=== PATIENT | male | born 1990 | race Caucasian/White ===

== ENCOUNTER 2017-05-02 10:43 | Day surgery (SDC) | payer BC ==
[~2017-05-02 10:43] MED LIST: Lactated Ringers 1,000 ML IV SCH; Lidocaine 1%/Sod Bicarbonate in NS 8.4% 1 ML Syringe PRN; Sodium Chloride 0.9% 10 ML Syringe FLUSH PRN
[2017-05-02] MEDS ORDERED: Bupivacaine 0.25% 30 ML SDV ONE (12:24)
--- NOTE | 2017-05-02 12:26 | PCM.PREANE ---
Preanesthetic Assessment - Anesthesia/Transfusion/Family Hx Anesthesia History: Prior Anesthesia Without Reaction Family History of Anesthesia Reaction: No Transfusion History: No Prior Transfusion(s) - Review of Systems General: No Symptoms Pulmonary: No Symptoms Cardiovascular: Orthopnea Neurological: No Symptoms Other: Reports: None - Physical Assessment NPO Status Date: 05/01/17 NPO Status Time: 09:00 (16 ounces - water and coffee) Pulse: 68 O2 Sat by Pulse Oximetry: 96 Respiratory Rate: 17 Blood Pressure: 141/85 Temperature: 99.1 F Height: 6 ft 2 in Weight: 91.8 kg ASA Class: 2 Mental Status: Alert & Oriented x3 Airway Class: Mallampati = 1 Dentition: Reports: Normal Dentition Thyro-Mental Finger Breadths: 3 Mouth Opening Finger Breadths: 3 ROM/Head Extension: Full Lungs: Clear to Auscultation, Normal Respiratory Effort Cardiovascular: Regular Rate, Regular Rhythm - Lab Values: Laboratory Last Values MRSA (PCR) Negative 05/01/17 11:25 - Allergies Allergies/Adverse Reactions: Allergies Allergy/AdvReac Type Severity Reaction Status Date / Time No Known Allergies Allergy Verified 05/01/17 14:51 - Blood Blood Available: No - Anesthesia Plan Pre-Op Medication Ordered: Antacids - Acknowledgements Anesthesia Type Planned: General Anesthesia (discussed increased risk of aspiration with 16 oz at 0900 and chewing tobacco at 0930 agrees to proceed) Pt an Appropriate Candidate for the Planned Anesthesia: Yes Alternatives and Risks of Anesthesia Discussed w Pt/Guardian: Yes Pt/Guardian Understands and Agrees with Anesthesia Plan: Yes PreAnesthesia Questionnaire - Past Health History Medical/Surgical History: Denies Medical/Surgical History HEENT History: Reports: Other (See Below) (glasses) Cardiovascular History: Reports: None Respiratory History: Reports: None Gastrointestinal History: Reports: None Musculoskeletal History: Reports: Arthritis - Past Surgical History Musculoskeletal Surgical History: Reports: Arthroscopic Knee - SUBSTANCE USE Tobacco Use Within Last Twelve Months: Smokeless Tobacco (today at 930) Second Hand Smoke Exposure: No Days Per Week of Alcohol Use: 1 (couple times a month) Recreational Drug Use History: No - HOME MEDS Home Medications: Home Meds Hydrocodone/Acetaminophen [[place] 5-325 Tablet] 1 - 2 each PO Q6H PRN #40 tablet 05/02/17 [Rx] Aspirin 325 mg PO BID #84 tab 05/03/17 [Rx] - CURRENT (IN HOUSE) MEDS Current Meds: Current Medications Epinephrine HCl (Adrenalin) 3 mg .XX ONETIME ONE Stop: 05/02/17 13:21 Lactated Ringer's (Ringers, Lactated) 1,000 mls @ 125 mls/hr IV ASDIRECTED CRISTINA Stop: 05/02/17 23:00 Lidocaine/Sodium Bicarbonate (Buffered Lidocaine 1% In Ns 8.4%) 0.25 ml .XX ONETIME PRN PRN Reason: Prior to IV Start Stop: 05/02/17 18:00 Sodium Chloride (Saline Flush) 10 ml FLUSH ASDIRECTED PRN PRN Reason: Keep Vein Open Stop: 05/02/17 18:00
[2017-05-02] MEDS ORDERED: Metoclopramide 10 MG/2 ML SDV IV ONE (12:29)
[2017-05-02] MEDS ORDERED: Citric Acid/Sodium Citrate Solution 30 ML Cup PO ONE (12:34)
[2017-05-02] MEDS ORDERED: Rocuronium 50 MG/5 ML Vial ONE (13:11)
[2017-05-02] MEDS ORDERED: Ondansetron 4 MG/2 ML SDV ONE (13:11)
[2017-05-02] MEDS ORDERED: Lidocaine 1% 4 ML ONE (13:11)
[2017-05-02] MEDS ORDERED: Propofol 200 MG/20 ML SDV ONE (13:11)
[2017-05-02] MEDS ORDERED: fentaNYL 250 MCG/5 ML SDV ONE (13:11)
[2017-05-02] MEDS ORDERED: Midazolam 1 MG/ML 2 ML SDV ONE (13:11)
[2017-05-02] MEDS ORDERED: ceFAZolin 1 GM Vial ONE (13:15)
[2017-05-02] MEDS ORDERED: EPINEPHrine 1 MG/ML 30 ML MDV ONE (13:20)
[2017-05-02] MEDS ORDERED: Ondansetron 4 MG/2 ML SDV IVPUSH PRN (13:36)
[2017-05-02] MEDS ORDERED: fentaNYL 100 MCG/2 ML SDV IVPUSH PRN (13:36)
[2017-05-02] MEDS ORDERED: Meperidine PF 50 MG/ML Syringe IVPUSH PRN (13:36)
[2017-05-02] MEDS ORDERED: HYDROmorphone 0.5 MG/0.5 ML Syringe IVPUSH PRN (13:36)
[2017-05-02] MEDS ORDERED: Lactated Ringers 1,000 ML ONE (13:54)
[2017-05-02] MEDS ORDERED: Ketorolac 30 MG/ML SDV ONE (14:08)
[2017-05-02] MEDS ORDERED: HYDROmorphone 1 MG/ML Syringe ONE (14:26)
[2017-05-02] MEDS ORDERED: Neostigmine Methylsulfate 1 MG/ML 5 ML Syringe ONE (14:42)
--- NOTE | 2017-05-02 14:45 | PCM.POSTAN ---
POST ANESTHESIA ASSESSMENT - MENTAL STATUS Mental Status: Alert, Oriented - VITAL SIGNS Pulse Rate: 77 SaO2: 99 Resp Rate: 11 Blood Pressure: 125/77 Temperature: 98 F - RESPIRATORY Respiratory Status: Respiratory Rate WNL, Airway Patent, O2 Saturation Stable, Supplemental Oxygen - CARDIOVASCULAR CV Status: Pulse Rate WNL, Blood Pressure Stable - GASTROINTESTINAL GI Status: No Symptoms - PAIN Pain Score: 0 - POST OP HYDRATION Hydration Status: Adequate & Stable
[2017-05-02] MEDS ORDERED: Acetaminophen/HYDROcodone 325-5 MG Tab PO PRN (15:19)
--- NOTE | 2017-05-02 15:55 | PCM48HPAN ---
Post Anesthesia Note - EVALUATION WITHIN 48HRS OF ANESTHETIC Vital Signs in Normal Range: Yes Patient Participated in Evaluation: Yes Respiratory Function Stable: Yes Airway Patent: Yes Cardiovascular Function Stable: Yes Hydration Status Stable: Yes Pain Control Satisfactory: Yes Nausea and Vomiting Control Satisfactory: Yes Mental Status Recovered: Yes
--- NOTE | 2017-05-06 14:23 | PCM.OPNOTE ---
- General Post-Op/Procedure Note Date of Surgery/Procedure: 05/02/17 Operative Procedure(s): right knee video arthroscopy with partial medial meniscectomy and chondroplasty of medial compartment. 2. 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
--- NOTE | 2017-05-06 14:51 | OR ---
DATE OF OPERATION: 05/02/2017 SURGEON: Shane Estrella MD OPERATION PERFORMED: 1. Right knee video arthroscopy with partial medial meniscectomy and chondroplasty of medial compartment. 2. Left knee video arthroscopy with loose body removal and chondroplasty of medial femoral condyle. PREOPERATIVE DIAGNOSIS: Bilateral knee pain with right knee medial meniscus tear and left knee loose body. 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 ANESTHESIA: General LMA with local. ANESTHESIA PROVIDER: Bibiana Blum CRNA AUTOMOTIVE DESIGN DRAFTER: Clare Mason PA-C. ESTIMATED BLOOD LOSS: Less than 5 mL. COMPLICATIONS: None. CONDITION: Stable. DESCRIPTION OF PROCEDURE: The patient was identified in the preop holding area. Proper site was marked and identified by the surgeon. The patient was taken back to the operating theater where after adequate anesthesia, the patient was placed in supine on radiolucent table. The patient's bilateral lower extremities were then sterilely prepped and draped in the usual sterile fashion. OR time-out was performed. The patient received 2 g of IV Ancef. At this time starting with the left lower extremity, we exsanguinated and tourniquet was insufflated 250 mmHg. Anterolateral portal incision was then made. The scope trocar was introduced. The patient had grade 1/2 chondromalacia of the patellofemoral joint. At this time, there was noted to be a large loose body in the medial gutter. At this time, a posterolateral portal was then created with the use of a spinal needle and then a grasper was used for retrieval of the loose body which was very significant size, roughly 2.5 cm x 2 cm large. At this time, attention was turned to the medial compartment. At this time, the medial compartment showed to have a large OCD lesion which was most likely where the loose body came from with grade 3/4 chondromalacia noted in this region. The patient had grade 3 chondromalacia of the tibial plateau as well. There was some lateral meniscus tear noted. The ACL was intact in the notch. At this time, we did do a chondroplasty of the patella as well as partially of the medial femoral condyle. Excess saline was drained from the knee and the usual closure was used for the left knee. At this time, the tourniquet was deflated to the left knee and attention was turned to the right knee. Right lower extremity was exsanguinated. Tourniquet was inflated to 250 mmHg. Standard anterolateral portal was created. Scope trocar was introduced. The patient had grade 1/2 chondromalacia of the patellofemoral joint. Attention was turned to the medial compartment. The patient was noted to have a significant degenerative tear of the posterior horn of the medial meniscus. He had grade 3 chondromalacia noted at both medial femoral condyle and tibial plateau. At this time, a chondroplasty of the medial compartment was then performed. A partial medial meniscectomy of the posterior 3rd horn of the medial meniscus was then completed. At this time, the rest was found to be stable. ACL appeared to be stretched in the notch. The lateral compartment showed grade 1 chondromalacia changes. At this time, excess saline was drained from the knee. Nylon simple suture was used for closure of the skin. The patient had sterile soft dressings applied and was sent to PACU in stable condition. MMODAL /[id number]
== END 2017-05-02 16:25 | disposition home or self-care (01) ==
LOC: JD.SDS 10:43
PROVIDERS: ATTEND Orthopaedic Surgery
DX: M23.221 Derangement of posterior horn of medial meniscus due to old tear or injury, right knee (principal); M23.42 Loose body in knee, left knee; M94.262 Chondromalacia, left knee; M94.261 Chondromalacia, right knee; J30.2 Other seasonal allergic rhinitis
CPT/HCPCS: 29881; 87641; A9270; J0690; J1170; J1885; J2250; J2405; J2710; J2765; J3010; J3490; J7120; 01400; J2704